=== PATIENT | male | born 1995 | race Caucasian/White ===

== ENCOUNTER 2019-03-30 17:23 | Emergency (ER) | payer SELFPAY ==
[~2019-03-30] VITALS: Ht 162.6 cm; Wt 68.2 kg
[~2019-03-30 17:23] MED LIST: IBUP-1542 PO
[2019-03-30 17:30] VITALS: Ht 162.6 cm; Wt 68.2 kg
[2019-03-30] MEDS ORDERED: HYDROmorphONE 2 MG/ML SYG IM STA (17:49)
[2019-03-30] MEDS ORDERED: NEOMYC/POLYMYX/BACIT 30 GM OINT TOP ONE (18:00)
[2019-03-30] MEDS ORDERED: DIPHTH/TET/ACEL PERTUSS (ADULT) 0.5 ML VIAL IM* ONE (18:00)
[2019-03-30 19:24] VITALS: BP 116/71; PULSE 66; RESP 15
== END 2019-03-30 19:33 | disposition home or self-care (01) ==
LOC: E/R 17:23
DX: S53.401A Unspecified sprain of right elbow, initial encounter (principal); R40.2412 Glasgow coma scale score 13-15, at arrival to emergency department; S73.101A Unspecified sprain of right hip, initial encounter; S60.811A Abrasion of right wrist, initial encounter; R07.9 Chest pain, unspecified; V23.9XXA Unspecified motorcycle rider injured in collision with car, pick-up truck or van in traffic accident, initial encounter; Z23 Encounter for immunization
CPT/HCPCS: 71045; 72100; 72170; 73080; 73110; 90471; 90715; 96372; 99284; J1170